=== PATIENT | male | born 1960 | race Caucasian/White ===

== ENCOUNTER → 2020-02-29 11:43 | Outpatient (CLI) | payer OTHER, SELFPAY ==
--- NOTE | ~2020-02-29 | XR_ITS ---
EXAMINATION: XR knee RT 3V DATE: 02/29/2020 12:23 INDICATION: Unspecified osteoarthritis, unspecified site. TECHNIQUE: 3 views of right knee were obtained. COMPARISON: Right knee radiographs 08/18/2018 FINDINGS: Bone alignment is normal. No fracture. There is mild tricompartmental osteoarthritis. No kn ee joint effusion. There are loose bodies in the posterior knee joint measuring up to 6 mm. IMPRESSION: 1. Mild right knee osteoarthritis. 2. Right knee joint loose bodies. Reviewed, dictated and finalized at location B.
--- NOTE | ~2020-02-29 | XR_ITS ---
EXAMINATION: XR knee LT 3V DATE: 02/29/2020 12:23 INDICATION: Unspecified osteoarthritis, unspecified site. TECHNIQUE: 3 views of left knee were obtained. COMPARISON: Left knee radiographs 08/18/2018 FINDINGS: Bone alignment is normal. No fracture. There is mild tricompartmental osteoarthritis. No kn ee joint effusion. IMPRESSION: 1. Mild left knee osteoarthritis. Reviewed, dictated and finalized at location B.
--- NOTE | ~2020-02-29 | XR_ITS ---
EXAMINATION: HAND-NAS ARTHRITIS 3+VIEWS DATE: 02/29/2020 12:23 INDICATION: Osteoarthritis TECHNIQUE: Posteroanterior, lateral, and oblique views of the left and of the right hands as well as a ballcatchers view of both hands were obtained. COMPARISON: 08/18/2018 FINDINGS: Alignment is normal. No fracture. Minimal to mild polyarticular osteoarthritis at multiple bilateral interphalangeal joints. In addition there is joint space narrowing at the bilateral fourth metacarpop halangeal joints, mild on the right and moderate on the right which are without evident osteophytes. No erosions to more specifically suggest an inflammatory arthritis. Soft tissues are unremarkable. IMPRESSION: 1. Nonspecific distribution of atypical arthritis with relatively uniform mild right-sided and modera te left-sided joint space narrowing at the fourth metacarpophalangeal joints without erosions or oste ophytosis equivocal for an inflammatory arthritis versus osteoarthritis. 2. More typical fusion of minimal to mild polyarticular osteoarthritis at multiple bilateral interpha langeal joints. Reviewed, dictated and finalized at location A. IMPRESSION: 1. Nonspecific distribution of atypical arthritis with relatively uniform mild right-sided and moderate left-sided joint space narrowing at the fourth metacar pophalangeal joints without erosions or osteophytosis equivocal for an inflamma tory arthritis versus osteoarthritis. 2. More typical fusion of minimal to mild polyarticular osteoarthritis at multi ple bilateral interphalangeal joints.
== END ==
PROVIDERS: PCP Internal Medicine; Visit Provider Internal Medicine
DX: M19.042 Primary osteoarthritis, left hand (principal); M19.041 Primary osteoarthritis, right hand; M25.461 Effusion, right knee; M23.41 Loose body in knee, right knee; M17.0 Bilateral primary osteoarthritis of knee
CPT/HCPCS: 73130; 73562

== ENCOUNTER → 2020-03-03 16:00 | Outpatient (CLI) | payer OTHER, SELFPAY ==
--- NOTE | ~2020-03-03 | CT_ITS ---
EXAMINATION: CT lung screening EXAM DATE: 03/03/2020 16:14 INDICATION: Personal history of nicotine dependence. TECHNIQUE: Spiral low dose CT of the chest without contrast. Axial, coronal and sagittal images were reviewed. The dose-length product (DLP) for this examination was 206.20 mGy-cm. The exposure was t ailored according to patient size (auto mA exposure control), and iterative reconstruction (ASIR) was used as additional dose reduction technique. There is no prior study for comparison. FINDINGS: There is 4 mm right upper lobe nodule, several smaller nodules. Mild emphysema and hyperin flation. Tracheobronchial tree is patent. There is no mediastinal, hilar or axillary lymphadenopat hy. There are no pleural or pericardial effusions. There is no pneumothorax. Heart normal in si ze. There is mild to moderate coronary arterial calcification, arterial sclerosis. There is right a drenal gland adenoma measuring 1.6 cm, smaller left adrenal adenoma. There is mild thoracic spondylo sis without osteoblastic or osteolytic lesions identified. IMPRESSION: Lung-RADS category 2, benign appearance or behavior (<1% chance of malignancy); recommend continued LDCT screening in 1 year. Reviewed, dictated and finalized at location G.
== END ==
PROVIDERS: PCP Internal Medicine; Visit Provider Internal Medicine
DX: Z87.891 Personal history of nicotine dependence (principal)
CPT/HCPCS: G0297

== ENCOUNTER 2021-03-28 14:55 | Outpatient (CLI) | payer OTHER, SELFPAY ==
--- NOTE | ~2021-03-28 | CT_ITS ---
EXAMINATION: CT lung screening DATE: 03/28/2021 15:22 INDICATION: Personal history of tobacco dependence TECHNIQUE: Computed tomography (CT) of the chest was performed without intravenous contrast. The dose -length product was 197.47 mGy-cm. Automated exposure control and iterative reconstruction technique were employed. COMPARISON: CT dated 03/03/2020 FINDINGS: Heart size is normal. No significant pleural or pericardial effusion. There is atherosclero sis of the aorta and coronary arteries. No thoracic lymphadenopathy. Stable bilateral adrenal adenoma s, largest in the right adrenal gland measuring 1.7 cm. There is a small hypodensity of the right hep atic lobe, most likely benign cyst or hemangioma. There is thoracic spondylosis. No acute osseous abn ormality. There is left lower lobe atelectasis/scarring. Stable small bilateral pulmonary nodules anthony suring 4 mm or less. No endobronchial lesions. No pneumothorax. No endobronchial lesions. IMPRESSION: 1. Lung-RADS category 2: Benign appearance or behavior. Continue annual screening with noncontrast lo w-dose chest CT in 12 months. Reviewed, dictated and finalized at location A. IMPRESSION: 1. Lung-RADS category 2: Benign appearance or behavior. Continue annual screeni ng with noncontrast low-dose chest CT in 12 months.
== END 2021-03-28 14:56 | disposition home or self-care (01) ==
LOC: ANHIMG 14:58
PROVIDERS: PCP Internal Medicine; Visit Provider Internal Medicine
DX: Z12.2 Encounter for screening for malignant neoplasm of respiratory organs (principal); Z87.891 Personal history of nicotine dependence
CPT/HCPCS: 71271

== ENCOUNTER → 2021-08-09 08:56 | Outpatient (CLI) | payer OTHER, SELFPAY ==
[2021-08-09 13:46] LABS: Influenza A QL RT-PCR Negative (Negative); Influenza B QL RT-PCR Negative (Negative); SARS-CoV-2 RNA PCR Negative
== END ==
PROVIDERS: PCP Internal Medicine; Visit Provider Internal Medicine
DX: J06.9 Acute upper respiratory infection, unspecified (principal); R09.89 Other specified symptoms and signs involving the circulatory and respiratory systems; Z20.822 Contact with and (suspected) exposure to COVID-19
CPT/HCPCS: 87502; C9803; U0003; U0005

== ENCOUNTER → 2021-11-24 09:53 | Outpatient (CLI) | payer OTHER, SELFPAY ==
--- NOTE | ~2021-11-24 | XR_ITS ---
EXAMINATION: XR knee RT 2V DATE: 11/24/2021 10:31 INDICATION: Right knee pain and burning TECHNIQUE: Two views of the right knee were obtained. COMPARISON: 02/29/2020 FINDINGS: Alignment is normal. No fracture or osteochondral lesion. There is mild tricompartmental os teoarthritis characterized by tiny marginal osteophytes. No joint effusion/synovitis. Soft tissues a re unremarkable. Loose bodies are noted posteriorly in the joint space. IMPRESSION: 1. Mild osteoarthritis without acute osseous abnormality. Reviewed, dictated and finalized at location B.
== END ==
PROVIDERS: PCP Internal Medicine; Visit Provider Internal Medicine
DX: M89.49 Other hypertrophic osteoarthropathy, multiple sites (principal); M17.11 Unilateral primary osteoarthritis, right knee
CPT/HCPCS: 73560

== ENCOUNTER 2022-08-31 09:09 | Outpatient (CLI) | payer OTHER, SELFPAY ==
--- NOTE | ~2022-08-31 | CT_ITS ---
EXAMINATION: CT lung screening DATE: 08/31/2022 09:31 INDICATION: Personal history of nicotine dependence, prior smoker with 20 pack year history TECHNIQUE: Computed tomography (CT) of the chest was performed without intravenous contrast. The dose -length product (DLP) was 264.60 mGy-cm. Automated exposure control and iterative reconstruction tech [employer] were employed. COMPARISON: 03/28/2021 FINDINGS: There is mild emphysema. There are stable bilateral pulmonary nodules measuring up to 4 mm. There is a stable fissural lymph node in association with the minor fissure. The lungs are free of a cute opacities. No pleural effusion or pneumothorax. No pathologically enlarged thoracic lymph nodes are identified. The heart size is normal. Calcified coronary artery atherosclerosis is noted. There i s a 10 mm cyst of the liver. There is a 1.7 cm adenoma right adrenal gland. There is an 11 mm adenoma of the left adrenal gland. There is moderate thoracic spondylosis. IMPRESSION: 1. Lung-RADS category 2: Benign appearance or behavior. Continue annual screening with noncontrast lo w-dose chest CT in 12 months. Reviewed, dictated and finalized at location B. [employer] WORKER IMPRESSION: 1. Lung-RADS category 2: Benign appearance or behavior. Continue annual screeni ng with noncontrast low-dose chest CT in 12 months.
== END 2022-08-31 09:10 | disposition home or self-care (01) ==
LOC: ANHIMG 09:11
PROVIDERS: PCP Internal Medicine; Visit Provider Internal Medicine
DX: Z12.2 Encounter for screening for malignant neoplasm of respiratory organs (principal); Z87.891 Personal history of nicotine dependence
CPT/HCPCS: 71271

== ENCOUNTER 2023-06-10 07:54 | Outpatient (CLI) | payer OTHER, SELFPAY ==
--- NOTE | ~2023-06-10 | MR_ITS ---
EXAMINATION: MR hand RT wo/w con DATE: 06/10/2023 08:41 INDICATION: Painful lump at the right hand hand TECHNIQUE: Magnetic resonance imaging (MRI) of the right hand was performed without and with 20 mL Mu ltihance intravenous contrast. A marker was placed over the mass. Sequences included axial T1-weight ed FSE, axial T2-weighted FS FSE, coronal T1-weighted FSE, coronal T2-weighted FS FSE, sagittal T1-we ighted FSE and sagittal T2-weighted FS FSE. Post contrast axial, sagittal and coronal T1-weighted FS FSE sequences were also obtained. COMPARISON: Hand radiographs dated 02/29/2020 FINDINGS: Bone alignment is normal. Mild osteoarthritis with mild subarticular edema-like signal change at the triscaphe, pisotriquetral and scaphoid capitate articulations. Additional minimal to mild osteoarthri tis without degenerative subchondral changes at the interphalangeal joints. Otherwise normal bone mar row signal throughout with no reactive edema, fracture or pathologic marrow replacing process. The pa lpable lump of concern corresponds to a lobular cystic lesion measuring 2.5 x 1.6 x 1.2 cm with thin peripheral rim enhancement and enhancement along the smooth thin internal septation. This is located superficial to the flexor tendons to the fourth digit at the level of the distal neck of the fourth m etacarpal. It appears to to splay the fibers of the more superficial palmar aponeurosis. There is no discrete nodular enhancing soft tissue component. Physiologic amount fluid in the joint space. Visual ized portions of the flexor and extensor tendons are normal. No tenosynovitis or other abnormal fluid collections. The collateral ligament complex at the metacarpophalangeal and interphalangeal joints a re normal. IMPRESSION: 1. Palpable lump of concern corresponds to a 2.5 x 1.6 x 1.2 cm lobulated cystic lesion with thin per ipheral rim enhancement and smooth thin internal septation but no evident solid enhancing nodular sof t tissue component to suggest neoplasm. Differential would include ganglion cyst, epidermoid inclusio n cyst, hematoma or abscess in the appropriate clinical setting. Reviewed, dictated and finalized at location A. [employer] SALES REPRESENTATIVE IMPRESSION: 1. Palpable lump of concern corresponds to a 2.5 x 1.6 x 1.2 cm lobulated cysti c lesion with thin peripheral rim enhancement and smooth thin internal septatio n but no evident solid enhancing nodular soft tissue component to suggest neopl asm. Differential would include ganglion cyst, epidermoid inclusion cyst, hemat agustin or abscess in the appropriate clinical setting.
== END 2023-06-10 07:55 ==
DX: R22.31 Localized swelling, mass and lump, right upper limb (principal)
CPT/HCPCS: 73220; A9577

== ENCOUNTER 2024-01-13 06:07 | Day surgery (SDC) | payer OTHER, SELFPAY ==
[2023-11-01 14:44] VITALS: BMI 29.5
[2024-01-02 14:39] VITALS: BMI 28.6
[2024-01-13 06:47] VITALS: BP 126/78; PULSE 57; RESP 18; TEMP 36.4; O2SAT 99; BMI 27.8
--- NOTE | 2024-01-13 06:48 | P.PNAN_ITS ---
Anes - Initial Pre Proc Eval Procedure: Operation Date: 01/13/24 08:00 Proposed Procedures p Screening Colonoscopy - Glenn Gutiérrez DO Date/Time: 01/13/24 06:48 Surgeon: Glenn Gutiérrez DO Pre Op Diagnosis: Screening for neoplasm of colon Patient Data Age: 63 Gender: M Height: 1.91 m Weight: 104 kg Allergies Allergy/AdvReac Type Severity Reaction Status Date / Time No Known Allergies Allergy Verified 01/13/24 06:39 Home Medications Medication Instructions Recorded Confirmed Type apremilast 30 mg tablet (Otezla) See Rx Instructions .Route 12/18/22 01/13/24 Rx .COMPLEX #60 tabs atorvastatin 40 mg tablet See Rx Instructions .Route 05/17/23 01/13/24 Rx .COMPLEX #90 tabs Patient hx anesthesia problems: none Family hx anesthesia problems: none Results Review: All pre-operative results and documents have been reviewed as part of the pre- operative evaluation. 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 COVID-19 History of tobacco use Hypovitaminosis D Mixed hyperlipidemia Osteoarthritis Psoriatic arthritis Surgical History Surgical History H/O hand surgery History of testicular surgery Family History Family History Father Family history of diabetes mellitus in first degree relative Family history of lung disease Other Diabetes mellitus Family history of arthritis Family history of gout Family history of heart disease in male family member before age 55 Hypertension Social History Social History Smoking packs per day: 1 Smoking cigarettes per day: 20.0 Years smoked: 15 Smoking pack-years: 15.00 Smoking status: Former smoker Tobacco type: cigarettes Second hand tobacco smoke exposure: Yes Smoking end date: 07/22/13 Alcohol intake: never Alcohol use details: social Substance use: never Substance use type: does not use Lack of Transportation: No Lack of Food: Never True Current Housing: I Have Housing Concerned About Future Housing: No Difficulty Paying Gas/Electric Bills: No Difficulty Paying for Meds: No Currently Unemployed: No Education: Associate Degree Difficulty w/ Childcare or Family Care: No Living arrangements: with family Spiritual care concerns: No Anes - Eval Final PreProcedure Day of Procedure 01/13/24 06:48 Patient weight: overweight Heart: regular rate and rhythm Lungs: clear to auscultation Airway: Mallampati scale class II Neurological: alert and oriented Last oral intake: >/= 8 hours ASA classification: II Emergent: no Anesthetic plan: proceed Anesthesia type and monitoring: general GIVS and standard monitoring Results Review: All pre-operative results and documents have been reviewed as part of the pre- operative evaluation. Informed Consent: The patient's anesthetic plan and its attendant risks and benefits were discussed with the patient/family/POA. Questions were solicited and answers provided to the satisfaction of the patient/family/POA.
[2024-01-13] MEDS: LACTATED RINGERS 1,000 ML 150 ML IV CONT (06:55)
--- NOTE | 2024-01-13 07:35 | PM.IMHP ---
H&P: HPI History of Present Illness Date/Time: 01/13/24 07:35 Chief Complaint: Screening for colorectal cancer Narrative: 63 yo man presents for colonoscopy. Last done 7 years ago. Denies fam hx colon cancer. Denies hematochezia or melena. Review of Systems Review of Systems: All systems reviewed & are unremarkable except as noted in HPI and below Constitutional: Constitutional: Denies chills, Denies fever(s), Denies headache(s) and Denies weight loss Eyes: Eyes: Denies change in vision ENT: Denies dizziness, Denies headache(s), Denies neck mass and Denies throat swelling Cardiovascular: Cardiovascular: Denies chest pain, Denies lightheadedness and Denies dyspnea Respiratory: Respiratory: Denies cough, Denies dyspnea and Denies wheezing Gastrointestinal: Gastrointestinal: Denies abdominal pain, Denies change in bowel habits, Denies nausea and Denies vomiting Genitourinary: Genitourinary: Denies hematuria and Denies dysuria Musculoskeletal: Musculoskeletal: Reports as per HPI Integumentary/Breasts: Skin/Breast: Reports as per HPI Neurologic: Denies dizziness and Denies headache(s) Allergic/Immunologic: Allergic/Immunologic: Denies throat swelling and Denies wheezing PMF Past Medical History Medical History Adrenal adenoma 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 COVID-19 History of tobacco use Hypovitaminosis D Mixed hyperlipidemia Osteoarthritis Psoriatic arthritis Surgical History Surgical History H/O hand surgery History of testicular surgery Family History Family History Father Family history of diabetes mellitus in first degree relative Family history of lung disease Other Diabetes mellitus Family history of arthritis Family history of gout Family history of heart disease in male family member before age 55 Hypertension Social History Social History Smoking packs per day: 1 Smoking cigarettes per day: 20.0 Years smoked: 15 Smoking pack-years: 15.00 Smoking status: Former smoker Tobacco type: cigarettes Second hand tobacco smoke exposure: Yes Smoking end date: 07/22/13 Alcohol intake: never Alcohol use details: social Substance use: never Substance use type: does not use Lack of Transportation: No Lack of Food: Never True Current Housing: I Have Housing Concerned About Future Housing: No Difficulty Paying Gas/Electric Bills: No Difficulty Paying for Meds: No Currently Unemployed: No Education: Associate Degree Difficulty w/ Childcare or Family Care: No Living arrangements: with family Spiritual care concerns: No Meds Home Medications and Allergies Home Medications Medication Instructions Recorded Confirmed Type apremilast 30 mg tablet (Otezla) See Rx Instructions .Route 12/18/22 01/13/24 Rx .COMPLEX #60 tabs atorvastatin 40 mg tablet See Rx Instructions .Route 05/17/23 01/13/24 Rx .COMPLEX #90 tabs Allergies Allergy/AdvReac Type Severity Reaction Status Date / Time No Known Allergies Allergy Verified 01/13/24 06:39 Vital Signs Vital Signs - 24 hr 01/13/24 06:47 Temperature 36.4 C L Pulse Rate 57 L Respiratory Rate 18 Blood Pressure 126/78 Pulse Oximetry 99 Oxygen Delivery Room Air Exam Const: General: no acute distress and alert Orientation/consciousness: patient oriented x3 HENMT: Head: normocephalic and atraumatic Ears: hearing grossly normal bilaterally Face/Nose/Sinus: Normal nares present Mouth: Yes Normal oral and palatal mucosa present Eyes: Periorbital: periorbital findings normal Sclera: sclerae normal EOM: EOMs intact bilaterally Neck: Neck: normal visual inspection, no lymphadenopathy and trachea midline Chest: Chest palpation & insp
[2024-01-13 08:46] VITALS: BP 123/71; PULSE 56; RESP 15; O2SAT 96
[2024-01-13 08:56] VITALS: BP 106/80; PULSE 52; RESP 16; O2SAT 98
[2024-01-13 09:06] VITALS: BP 138/93; PULSE 58; RESP 18; O2SAT 100
--- NOTE | 2024-01-13 10:42 | WPDANESPN ---
Anes - Prog Note Post-Op Date/Time: 01/13/24 10:42 Cardiovascular status: normal Respiratory status: normal Airway patency: baseline Mental status: baseline Post-Op hydration status: normal Vital Signs: Last Vital Signs Temp 36.4 C L 01/13/24 06:47 Pulse 58 L 01/13/24 09:06 Resp 18 01/13/24 09:06 BP 138/93 H 01/13/24 09:06 Pulse Ox 100 01/13/24 09:06 O2 Del Method Room Air 01/13/24 09:06 Pain Score (VAS): 0 I/O: Intake & Output 01/12/24 01/13/24 01/13/24 23:59 07:59 15:59 Intake Total 700 Balance 700 Post-procedural complaints: none Patient Feedback: Patient satisfied with anesthetic care. Other Findings: Patient vital signs back to baseline. Patient denies nausea and vomiting. Patient's pain under control. Patient OK for discharge.
== END 2024-01-13 09:13 | disposition home or self-care (01) ==
PROVIDERS: Visit Provider Surgery
PROC: 0DJD8ZZ Inspection of Lower Intestinal Tract, Via Natural or Artificial Opening Endoscopic (ICD-10-PCS; CPT 45378; principal; 2024-01-13 08:00)
DX: Z12.11 Encounter for screening for malignant neoplasm of colon (principal); D12.5 Benign neoplasm of sigmoid colon; K57.30 Diverticulosis of large intestine without perforation or abscess without bleeding
CPT/HCPCS: 45385

== ENCOUNTER 2024-01-13 07:00 | Outpatient (NON) | payer OTHER, SELFPAY | END 2024-01-13 07:01 | disposition home or self-care (01) | LOC: ANHLAB 01-14 10:20 | PROVIDERS: Visit Provider Surgery | DX: Z12.11 Encounter for screening for malignant neoplasm of colon (principal); D12.5 Benign neoplasm of sigmoid colon | CPT/HCPCS: 88305 ==